=== PATIENT | male | born 1995 | race Caucasian/White ===

== ENCOUNTER 2018-08-11 21:24 | Emergency (ER) | payer OTHER ==
--- NOTE | 2018-08-11 22:18 | EDPHY ---
General Time Seen by Provider: 08/11/18 22:12 Narrative: CHIEF COMPLAINT: Nose bleed HISTORY OF PRESENT ILLNESS: Patient presents by private vehicle with his partner bedside with complaints of nosebleed. He is 3 weeks post op from septoplasty, tonsillectomy, adenoidectomy. He says that he has been using saline as prescribed by his physician. He said no complaints otherwise until today around 2 hr ago when the bleeding started from both nostrils spontaneously. No injury to the nose. No packing of his nose. He says he could feel the blood going down the back of his throat. He has applied pressure without stopping. He has no bleeding from any other site. No chest pain, shortness of breath or difficulty breathing. No other associated complaints or modifying factors. No anticoagulants. REVIEW OF SYSTEMS: 10 systems were reviewed and negative with the exception of the elements mentioned in the history of present illness. PCP: Dr. Sandy Parker SPECIALISTS: ENT, Dr. Cecilio iglesias PAST MEDICAL HISTORY: Hypertension, bicuspid aorta, PAST SURGICAL HISTORY: Septoplasty, tonsillectomy, adenoidectomy SOCIAL HISTORY: Nonsmoker. Lives independently. Grad Student FAMILY HISTORY: Noncontributory EXAMINATION: Vitals: Triage VS reviewed General Appearance: Alert, no distress. Well appearing Head: normocephalic, atraumatic Eyes: Pupils equal and round, no conjunctival pallor or injection ENT, Mouth: Mucous membranes moist. Uvula midline. There is dried blood the posterior pharynx with no active bleeding. There is venous bleeding from the right nostril near Kiesselbach's plexus. There is no posterior bleed. Neck: Normal inspection, supple, non-tender Respiratory: Lungs are clear to auscultation Cardiovascular: Regular rate with good signs of perfusion. Extremities: Nontender, no pedal edema Psychiatric: Mood and affect normal DIFFERENTIAL DIAGNOSES: Including but not limited to anterior epistaxis, posterior epistaxis, postoperative complication MDM: 10:15 p.m. Acute anterior epistaxis 3 weeks postop septoplasty with tonsillectomy adenoidectomy. There is no bleeding in the posterior pharynx. There is nonpulsatile bleeding from the anterior nostrils bilaterally. Airway remains patent with small portion of clotted blood in the posterior pharynx. No difficulty breathing. Vital signs are within normal limits. No anticoagulation. I have administered topical Afrin and lidocaine with epinephrine and will re-evaluate. Nasal clip in place. 11:15 p.m. Patient re-evaluated. Still mild bleeding noted. I will administer topical TXA. 11:30 p.m. Case discussed with the on-call surgeon for his ENT physician, Dr. Tellez. He recommends that we do place a nasal packing if needed. If so, he would like to see the patient on Tuesday morning and he would like him on Keflex prophylactically. 12:20 p.m. Patient re-evaluated. Topical TXA has been in place for nearly an hour. I have removed these in there is no bleeding at this time. This point I do feel he is stable for discharge home. We discuss continued Afrin use for the next 48 hr as well as continuous p.r.n. Nasal saline. We discussed follow up with ENT physician tomorrow for definitive care. We discussed ED precautions should he have any return of bleeding. He is aware that is surgeon would like to see him Tuesday. He is discharged home stable condition. SUPERVISION: This patient was independently evaluated without direct involvement of or examination by the attending physician. CONSULTATION: ENT physician Dr. Tellez by telephone - History Smoking Status: Never smoked - Objective Vital Signs: Initial Vital Signs Temperature (C) 97.2 F 08/11/18 21:28 Heart Rate 93 08/11/18 21:28 Respiratory Rate 16 08/11/18 21:28 Blood Pressure 167/83 H 08/11/18 21:28 O2 Sat (%) 95 08/11/18 21:28 O2 Delivery Mode Room Air Allergies/Adverse Reactions: Penicillins Allergy (Verified 08/11/18 21:27) Home Medications: Medication Instructions Recorded Lisinopril 08/11/18 Medications Given: Discontinued Medications Oxymetazoline HCl (Afrin Nasal [place]) 2 sprays [facility] EDNOW ONE Stop: 08/11/18 22:25 Last Admin: 08/11/18 22:27 Dose: 2 sprays Tranexamic Acid (Cyklokapron) 500 mg TP EDNOW ONE Stop: 08/11/18 23:17 Last Admin: 08/11/18 23:31 Dose: 500 mg Departure - Departure Disposition: Home, Routine, Self-Care Clinical Impression: Acute anterior epistaxis Condition: Good Instructions: Nosebleed (ED) Additional Instructions: 1. Contact and follow up with your ENT physician on Tuesday 2. If your nose bleed returns, apply the nasal clip and wait for 15-20 minutes. Return here if bleeding does not stop. 3. Afrin in the nose twice daily. Stop using this after tomorrow evening. 4. ED precautions for any return of bleeding, bleeding in the posterior pharynx , lightheadedness, dizziness or chest pain Referrals: Physician,Emergency Dept, [Medical Doctor] - As per Instructions Michael Alicia MD [Medical Doctor] - As per Instructions
[2018-08-11] MEDS ORDERED: OXYMETAZOLINE 30 ML NASAL SPRAY ONE (22:24)
[2018-08-11] MEDS ORDERED: OXYMETAZOLINE 30 ML NASAL SPRAY EACHNARE ONE (22:24)
[2018-08-11] MEDS ORDERED: TRANEXAMIC ACID 1,000 MG/10 ML VIAL TP ONE (23:16)
[2018-08-11 23:32] VITALS: BP 132/85
== END 2018-08-12 00:35 | disposition home or self-care (01) ==
PROC: 2Y41X5Z Packing of Nasal Region using Packing Material (ICD-10-PCS; principal; 2018-08-11)
DX: R04.0 Epistaxis (principal)